=== PATIENT | female | born 1980 | race Two or more races ===

== ENCOUNTER 2021-01-19 20:56 | Emergency (ER) | payer SELFPAY ==
[~2021-01-19] VITALS: Ht 160 cm; Wt 72.7 kg
[2021-01-19] MEDS ORDERED: IV NORMAL SALINE 1000ML BAG 1,000 ML IV ONE (22:45)
[2021-01-19 22:52] LABS: BILIRUBIN,URINE NEGATIVE (NEG); CLARITY,URINE CLEAR; COLOR,URINE YELLOW; NITRITE,URINE NEGATIVE (NEG); PH,URINE 5.5 (<5.0-8.0); PROTEIN,URINE NEGATIVE (NEG-TRACE); UROBILINOGEN,URINE 0.2 mg/dL (0.2 mg/dL)
[2021-01-19 22:59] LABS: RBC,URINE 0 /HPF (0-2); WBC,URINE OCC /HPF (0-4)
[2021-01-19 23:00] LABS: BACTERIA,URINE 0 /HPF (0-FEW)
[2021-01-19 23:47] LABS: BASO # 0.1 x10^3/uL (0.0-0.2); BASO % 1 % (0-3); EOS % 0 % (0-3); HEMATOCRIT 39.8 % (36.0-47.0); HEMOGLOBIN 13.3 g/dL (12.0-15.5); LYMPH # 1.1 x10^3/uL (1.0-4.8); LYMPH % 11 % (24-48); MEAN CORPUSCULAR HEMOGLOBIN 27 pg (25-35); MEAN CORPUSCULAR HGB CONC 34 g/dL (31-37); MEAN CORPUSCULAR VOLUME 82 fL (79-100); MONO # 0.7 x10^3/uL (0.0-1.1); MONO % 7 % (0-9); NEUT # 8.2 x10^3/uL (1.8-7.7); NEUT % 82 % (31-73); PLATELET COUNT 328 x10^3/uL (140-400); RED BLOOD COUNT 4.86 x10^6/uL (3.50-5.40); RED CELL DISTRIBUTION WIDTH 15.1 % (11.5-14.5); WHITE BLOOD COUNT 10.1 x10^3/uL (4.0-11.0)
[2021-01-19 23:56] LABS: CALCIUM 8.6 mg/dL (8.5-10.1); CREATININE 0.6 mg/dL (0.6-1.0); GFR 111.3; POTASSIUM 4.1 mmol/L (3.5-5.1)
[2021-01-20 00:02] LABS: ALBUMIN 3.7 g/dL (3.4-5.0); ALBUMIN/GLOBULIN RATIO 1.1 (1.0-1.7); TOTAL BILIRUBIN 0.5 mg/dL (0.2-1.0); TOTAL PROTEIN 7.2 g/dL (6.4-8.2)
[2021-01-20] MEDS ORDERED: CONTRAST GIVEN. MC PRN (00:15)
[2021-01-20] MEDS ORDERED: IOHEXOL 300 MG/ML 100ML VIAL. IV ONE (00:15)
[2021-01-20 00:24] VITALS: BP 109/81
--- NOTE | 2021-01-20 00:47 | RAD ---
INDICATION: Reason: LLQ PAIN, OMNI 300, 75 ML IV / Spl. Instructions: / History: . COMPARISON: None. TECHNIQUE: Axial CT images obtained through the abdomen and pelvis with contrast. One or more of the following individualized dose reduction techniques were utilized for this examinat ion: 1. Automated exposure control; 2. Adjustment of the mA and/or kV according to patient size; 3 . Use of iterative reconstruction technique. FINDINGS: Abdominal aorta is not aneurysmal. Liver is low density which can be seen with fatty infiltration. No peripancreatic fluid collection. Spleen unremarkable. No hydronephrosis. Small amount of free fluid within the pelvis with a portion appearing higher than simple density. Suspected nabothian cyst. Degenerative changes the spine. No periappendiceal inflammatory changes. There is a couple of mildly prominent loops of small bowel on the left lower quadrant measuring up to 22 mm but no high-grade transition point to suggest obstruction. IMPRESSION: * Small amount of free fluid within the pelvis with a portion of it appearing higher than simple den sity which could be secondary to a small amount of debris or blood within. * No hydronephrosis or evidence of appendicitis. * Liver is mildly low density which can be seen with fatty infiltration. Electronically signed by: Nahum Aguilar MD (01/20/2021 12:45 AM) [id number]
--- NOTE | 2021-01-20 00:57 | PHYS DOC ---
Past Medical History Past Medical History: Asthma, Other Additional Past Medical Histor: Lumbar spine compression fractures and sciatica Past Surgical History: Smoking Status: Never Smoker Alcohol Use: None General Adult EDM: Chief Complaint: ABDOMINAL PAIN HPI: HPI: Patient is a healthy 40yo female presenting for lower AP. Onset was ~3 days ago. No trauma, concerning ingestion or other known causative exposure. Passing gas and attempted bowel movements make better, nothing known makes worse. Patient reports vague pressure/cramping pain. She has not taken anything in attempt to alleviate symptoms. Reports last BM was ~4 days ago. No fever, systemic symptoms, ripping/tearing pain, or uti-like symptoms Review of Systems: Review of Systems: Fourteen body systems of review of systems have been reviewed. See HPI for pertinent positives and negative responses, other contreras all other systems are negative, non-pertinent or non-contributory Heart Score: C/O Chest Pain: No HEART Score for Chest Pain: HEART Score for Chest Pain Response (Comments) Value History Slighlty/Non-Suspicious 0 Age < 45 0 Risk Factors No Risk Factors 0 Total 0 Risk Factors: Risk Factors: DM, Current or recent (<one month) smoker, HTN, HLP, family history of CAD, obesity. Risk Scores: Score 0 - 3: 2.5% MACE over next 6 weeks - Discharge Home Score 4 - 6: 20.3% MACE over next 6 weeks - Admit for Clinical Observation Score 7 - 10: 72.7% MACE over next 6 weeks - Early Invasive Strategies Current Medications: Current Medications Medications (Trade) Dose Ordered Sig/Elyse Start Time Stop Time Status Last Admin Dose Admin Info (CONTRAST GIVEN -- Rx MONITORING) 1 each PRN DAILY PRN 01/20/21 00:15 01/22/21 00:14 Iohexol (Omnipaque 300 Mg/ml) 75 ml 1X ONCE 01/20/21 00:15 01/20/21 00:16 DC Sodium Chloride 1,000 ml @ 0 mls/hr 1X ONCE 01/19/21 22:45 01/19/21 22:46 DC 01/20/21 00:27 999 MLS/HR Allergies: Allergies: Allergies Coded Allergies Type Severity Reaction Last Updated Verified aspirin Allergy Unknown 01/19/21 Yes Physical Exam: PE: Constitutional: Well developed, well nourished, no acute distress, non-toxic appearance. HENT: Normocephalic, atraumatic, bilateral external ears normal, oropharynx moist, no oral exudates, nose normal. Eyes: PERRLA, EOMI, conjunctiva normal, no discharge. Neck: Normal range of motion, no tenderness, supple, no stridor. Cardiovascular: Heart rate regular, sinus rhythm, no murmurs rubs or gallops Lungs & Thorax: Bilateral breath sounds clear to auscultation Abdomen: Bowel sounds normal, soft, no tenderness, no masses, no pulsatile masses. Nonsurgical abdomen, no peritoneal signs Skin: Warm, dry, no erythema, no rash. Back: No tenderness, no CVA tenderness. Extremities: No tenderness, no cyanosis, no clubbing, ROM intact, no edema. Neurologic: Alert and oriented X 3, grossly normal motor & sensory function, no focal deficits noted. Psychologic: Affect normal, judgement normal, mood normal. Current Patient Data: Labs: Laboratory Tests Test 01/19/21 21:55 01/19/21 21:59 01/19/21 23:15 Urine Collection Type Unknown Urine Color Yellow Urine Clarity Clear Urine pH 5.5 (<5.0-8.0) Urine Specific Hamilton 1.020 (1.000-1.030) Urine Protein Negative mg/dL (NEG-TRACE) Urine Glucose (UA) Negative mg/dL (NEG) Urine Ketones (Stick) Negative mg/dL (NEG) Urine Blood Negative (NEG) Urine Nitrite Negative (NEG) Urine Bilirubin Negative (NEG) Urine Urobilinogen Dipstick 0.2 mg/dL (0.2 mg/dL) Urine Leukocyte Esterase Negative (NEG) Urine RBC 0 /HPF (0-2) Urine WBC Occ /HPF (0-4) Urine Squamous Epithelial Cells Mod /LPF Urine Bacteria 0 /HPF (0-FEW) Urine Mucus Mod /LPF POC Urine HCG, Qualitative Hcg negative (Negative) White Blood Count 10.1 x10^3/uL (4.0-11.0) Red Blood Count 4.86 x10^6/uL (3.50-5.40) Hemoglobin 13.3 g/dL (12.0-15.5) Hematocrit 39.8 % (36.0-47.0) Mean Corpuscular Volume 82 fL (79-100) Mean Corpuscular Hemoglobin 27 pg (25-35) Mean Corpuscular Hemoglobin Concent 34 g/dL (31-37) Red Cell Distribution Width 15.1 % (11.5-14.5) H Platelet Count 328 x10^3/uL (140-400) Neutrophils (%) (Auto) 82 % (31-73) H Lymphocytes (%) (Auto) 11 % (24-48) L Monocytes (%) (Auto) 7 % (0-9) Eosinophils (%) (Auto) 0 % (0-3) Basophils (%) (Auto) 1 % (0-3) Neutrophils # (Auto) 8.2 x10^3/uL (1.8-7.7) H Lymphocytes # (Auto) 1.1 x10^3/uL (1.0-4.8) Monocytes # (Auto) 0.7 x10^3/uL (0.0-1.1) Eosinophils # (Auto) 0.0 x10^3/uL (0.0-0.7) Basophils # (Auto) 0.1 x10^3/uL (0.0-0.2) Sodium Level 137 mmol/L (136-145) Potassium Level 4.1 mmol/L (3.5-5.1) Chloride Level 102 mmol/L (98-107) Carbon Dioxide Level 29 mmol/L (21-32) Anion Gap 6 (6-14) Blood Urea Nitrogen 7 mg/dL (7-20) Creatinine 0.6 mg/dL (0.6-1.0) Estimated GFR (Cockcroft-Gault) 111.3 BUN/Creatinine Ratio 12 (6-20) Glucose Level 102 mg/dL (70-99) H Lactic Acid Level 1.0 mmol/L (0.4-2.0) Calcium Level 8.6 mg/dL (8.5-10.1) Total Bilirubin 0.5 mg/dL (0.2-1.0) Aspartate Amino Transferase (AST) 11 U/L (15-37) L Alanine Aminotransferase (ALT) 22 U/L (14-59) Alkaline Phosphatase 64 U/L (46-116) Total Protein 7.2 g/dL (6.4-8.2) Albumin 3.7 g/dL (3.4-5.0) Albumin/Globulin Ratio 1.1 (1.0-1.7) Lipase 91 U/L (73-393) Laboratory Tests 01/19/21 23:15 Laboratory Tests 01/19/21 23:15 Vital Signs: Vital Signs Date Time Temp Pulse Resp B/P (MAP) Pulse Ox O2 Delivery O2 Flow Rate FiO2 01/20/21 00:24 111 20 109/81 (90) 99 Room Air 01/19/21 21:50 98.0 98.0 EKG: EKG: [] Radiology/Procedures: Radiology/Procedures: INDICATION: Reason: LLQ PAIN, OMNI 300, 75 ML IV / Spl. Instructions: / History: . COMPARISON: None. TECHNIQUE: Axial CT images obtained through the abdomen and pelvis with contrast. One or more of the following individualized dose reduction techniques were utilized for this examination: 1. Automated exposure control; 2. Adjustment of the mA and/or kV according to patient size; 3. Use of iterative reconstruction technique. FINDINGS: Abdominal aorta is not aneurysmal. Liver is low density which can be seen with fatty infiltration. No peripancreatic fluid collection. Spleen unremarkable. No hydronephrosis. Small amount of free fluid within the pelvis with a portion appearing higher than simple density. Suspected nabothian cyst. Degenerative changes the spine. No periappendiceal inflammatory changes. There is a couple of mildly prominent loops of small bowel on the left lower quadrant measuring up to 22 mm but no high-grade transition point to suggest obstruction. IMPRESSION: * Small amount of free fluid within the pelvis with a portion of it appearing higher than simple density which could be secondary to a small amount of debris or blood within. * No hydronephrosis or evidence of appendicitis. * Liver is mildly low density which can be seen with fatty infiltration. Electronically signed by: Nahum Aguilar MD (01/20/2021 12:45 AM) [id number] Course & Med Decision Making: Course & Med Decision Making VSS. HPI and PE concerning for constipation vs other. ER workup remarkable for non-emergent/surgical abdominal issues Discussed most likely diagnosis of constipation with patient and reviewed/educated her on supportive care practices for this I did disclose all diagnostic workup findings and need for close outpatient follow-up. I also disclosed this might be an acute presentation of more concerning pathology and so, close follow-up was advised Strict return precautions discussed with good understanding, all questions and concerns addressed Lisseth Disclaimer: Lisseth Disclaimer: This electronic medical record was generated, in whole or in part, using a voice recognition dictation system. Departure Departure Impression: Primary Impression: Nonspecific abdominal pain Additional Impression: Constipation Disposition: HOME / SELF CARE / HOMELESS Condition: STABLE Referrals: NO PCP (PCP) Patient Instructions: Abdominal Pain (Nonspecific), Constipation, Adult Additional Instructions: You have been evaluated in the Emergency Department today for abdominal pain. Your evaluation was not suggestive of any emergent condition requiring medical intervention at this time. However, some abdominal problems make take more time to appear. Therefore, it is important for you to watch for any new symptoms or worsening of your current condition. As discussed, you are likely suffering from constipation. You need to drink adequate water daily, I recommend 1.5 L/day. In addition, ensure adequate fiber ingestion, I recommend at least 10 g a day. Daily exercise will also help with this If needed, I would recommend a fiber supplement such as Metamucil which you can take 1 or 2 teaspoons 3 times daily with meals. Utilizing an [id number] emollient such as Colace would also help Return to the Emergency Department if you experience worsening pain, persistent fevers greater than 100.4, recurrent vomiting, blood in vomit, blood in stool, dark tarry stool, chest pain, difficulty breathing, or any other concerning symptoms. SHANNON SRINIVASAN DO January 20, 2021 00:57
[2021-01-20] MEDS ORDERED: SENNOSIDES 8.6 MG TABLET PO PRN (01:00)
== END 2021-01-20 01:55 | disposition home or self-care (01) ==
LOC: ER 20:56
DX: K59.00 Constipation, unspecified (principal); J45.909 Unspecified asthma, uncomplicated; Z88.6 Allergy status to analgesic agent
CPT/HCPCS: 36415; 74177; 80053; 81001; 81025; 83605; 83690; 85025; 87040; 99285; J7030